=== PATIENT | female | born 1955 | race Two or more races ===

== ENCOUNTER 2024-10-20 08:11 | Observation (INO) | payer MEDICARE, MEDICAID ==
[~2024-10-20] VITALS: Ht 157.5 cm; Wt 73.1 kg
--- NOTE | 2024-10-20 08:43 | ED.PDOC ---
HPI (NEURO) HPI Comments This is a 69 year old female presenting to the ED with chief complaint of dizziness. Patient reports that she has been experiencing dizziness with associated imbalance for the past 2 days. Patient relays that she feels better when sitting down, but when standing, the room starts to spin. Patient denies any ringing in her ears, N/V, headache, chest pain, or SOB. Chief Complaint: Dizziness Time Seen by MD: 08:42 Reviewed Notes: Nurses Notes, Medications, Allergies Information Source: Patient, Relative (Child) Mode of Arrival: Wheelchair Severity: Moderate Dizziness/Weakness Severity: Unable to do activities Timing: Days Duration: Since onset Prehospital treatment: None Onset: At rest Circumstances: Spontaneous Symptoms: Vertigo, Imbalance Past Medical History PAST MEDICAL HISTORY: DM, HTN Surgical History: Denies all surgeries GYROSCOPIC INSTRUMENT MECHANIC History: No Pertinent GYROSCOPIC INSTRUMENT MECHANIC History Family History Family History: Reviewed,noncontributory to illness Social History Smoker: Non-Smoker Alcohol: Denies ETOH Use Drugs: Denies Drug Use Lives In: Home Constitutional: denies: chills, diaphoresis, fatigue, fever, malaise, sweats, weakness, others EENTM: denies: blurred vision, double vision, ear bleeding, ear discharge, ear drainage, ear pain, ear ringing, eye pain, eye redness, hearing loss, mouth pain, mouth swelling, nasal discharge, nose bleeding, nose congestion, nose pain, photophobia, tearing, throat pain, throat swelling, voice changes, others Respiratory: denies: cough, hemoptysis, orthopnea, SOB at rest, shortness of breath, SOB with excertion, stridor, wheezing, others Cardiovascular: denies: chest pain, dizzy spells, diaphoresis, Dyspnea on exertion, edema, irregular heart beat, left arm pain, lightheadedness, palpitations, PND, syncope, others Gastrointestinal: denies: abdomen distended, abdominal pain, blood streaked bowels, constipated, diarrhea, dysphagia, difficulty swallowing, hematemesis, melena, nausea, poor appetite, poor fluid intake, rectal bleeding, rectal pain, vomiting, others Genitourinary: denies: abnormal vagina bleeding, burning, dyspareunia, dysuria, flank pain, frequency, hematuria, incontinence, pain, , vagina discharge, urgency, others Neurological: reports: dizziness; denies: fainting, headache, left sided numbness, left sided weakness, numbness, paresthesia, pre-existing deficit, righ t sided numbness, right sided weakness, seizure, speech problems, tingling, tremors, weakness, others Musculoskeletal: denies: back pain, gout, joint pain, joint swelling, muscle pain, muscle stiffness, neck pain, others Integumetry: denies: bruises, change in color, change in hair/nails, dryness, laceration, lesions, lumps, rash, wounds, others Allergic/Immunocompromised: denies: Difficulty Healing, Frequent Infections, Hives, Itching, others Hematologic/Lymphatic: denies: anemia, blood clots, easy bleeding, easy bruising, swollen glands, others Endocrine: denies: excessive hunger, excessive sweating, excessive thirst, excessive urination, flushing, intolerance to cold, intolerance to heat, unexplained weight gain, unexplained weight loss, others Psychiatric: denies: anxiety, bipolar disorder, depression, hopeless, panic disorder, schizophrenia, sleepless, suicidal, others All Other Systems: Reviewed and Negative Physical Exam General Appearance: Moderate Distress, Normal HEENT: Normal ENT Inspection, Pharynx Normal, TMs Normal Neck: Full Range of Motion, Non-Tender, Normal, Normal Inspection Respiratory: Chest Non-Tender, Lungs Clear, No Accessory Muscle Use, No Respiratory Distress, Normal Breath Sounds Cardiovascular: No Edema, No JVD, No Murmur, No Gallop, Normal Peripheral Pulses, Regular Rate/Rhythm Breast Exam: Deferred Gastrointestinal: No Organomegaly, Non Tender, No Pulsatile Mass, Normal Bowel Sounds, Soft Genitalia: Deferred Pelvic: Deferred Rectal: Deferred Extremities: No calf tenderness, Normal capillary refill, Normal inspection, Normal range of motion, Non-tender, No pedal edema Musculoskeletal : Apperance: Normal Neurologic: Alert, investigation specialist II-XII nml as Tested, No Motor Deficits, Normal Affect, Normal Mood, No Sensory Deficits Cerebellar Function: NOT DONE Reflexes: NOT DONE Skin: Dry, Normal Color, Warm Peripheral Pulses: 3+ Radial (R), 3+ Radial (L) Lymphatic: No Adenopathy Was a procedure done? Was a procedure done?: No Differential Diagnosis (SZ) Seizure: Psychogenic Seizure, Closed Head Injury, CVA/TIA X-Ray, Labs, Meds, VS Vital Signs Date Time Temp Pulse Resp B/P (MAP) Pulse Ox O2 Delivery O2 Flow Rate FiO2 10/20/24 09:53 62 10/20/24 08:19 65 10/20/24 08:12 97.4 73 18 164/65 95 97.4 Lab Test 10/20/24 09:20 10/20/24 08:38 10/20/24 08:23 Range/Units Urine Color Light-yellow Yellow Urine Clarity Clear Clear Urine pH 5.5 5.0-9.0 Urine Specific [place] 1.018 1.001-1.035 Urine Protein Negative Negative Urine Ketones Trace Negative Urine Blood Negative Negative /uL Urine Nitrite Negative Negative Urine Bilirubin Negative Negative Urine Urobilinogen Normal Negative mg/dL Urine Leukocyte Esterase Trace Negative /uL Urine RBC 1 0 - 4 /hpf Urine Microscopic WBC 2 0-5 /HPF Urine Squamous Epithelial Cells Few <5 /hpf Urine Bacteria None seen None Seen /hpf Urine Glucose Normal Normal mg/dL White Blood Count 3.3 L 4.4-10.8 10^3/uL Red Blood Count 4.53 4.0-5.20 10^6/uL Hemoglobin 14.1 12.2-16.2 g/dL Hematocrit 40.9 36.0-46.0 % Mean Corpuscular Volume 90.3 80.0-100.0 fL Mean Corpuscular Hemoglobin 31.2 28.0-32.0 pg Mean Corpuscular Hemoglobin Concent 34.6 32.0-36.0 g/dL Red Cell Distribution Width 12.6 11.8-14.3 % Platelet Count 215 140-450 10^3/uL Mean Platelet Volume 8.5 6.9-10.8 fL Neutrophils (%) (Auto) 49.2 37.0-80.0 % Lymphocytes (%) (Auto) 38.8 10.0-50.0 % Monocytes (%) (Auto) 7.8 0.0-12.0 % Eosinophils (%) (Auto) 3.3 0.0-7.0 % Basophils (%) (Auto) 0.9 0.0-2.0 % Neutrophils # (Auto) 1.6 1.6-8.6 10 ^3/uL Lymphocytes # (Auto) 1.3 0.4-5.4 10 ^3/uL Monocytes # (Auto) 0.3 0-1.3 10 ^3/uL Eosinophils # (Auto) 0.1 0-0.8 10 ^3/uL Basophils # (Auto) 0 0-0.2 10 ^3/uL Nucleated Red Blood Cells 0.0 % Sodium Level 141 136-145 mmol/L Potassium Level 4.5 3.5-5.1 mmol/L Chloride Level 104 98-107 mmol/L Carbon Dioxide Level 28 20-31 mmol/L Anion Gap 9 5-15 Blood Urea Nitrogen 12 9-23 mg/dL Creatinine 0.85 0.550-1.02 mg/dL Glomerular Filtration Rate Calc 74 >90 mL/min BUN/Creatinine Ratio 14.1 10.0-20.0 Serum Glucose 146 H 74-106 mg/dL Calcium Level 9.7 8.7-10.4 mg/dL Troponin I High Sensitivity 4 </=34 ng/L POC Glucose 144 H 70-106 mg/dl [place] [id number] Ph: [phone] DIAGNOSTIC IMAGING Diagnostic Imaging Report : [id number] Signed PATIENT: MANASA BENSONACCT: [id number] UNIT: [id number] : 1955 LOC: ER ROOM / BED: / AGE / SEX: 69 / F ADM STATUS: REG ER SERVICE 9 ORDERING PHYSICIAN: ALIRIO BENOIT MD PROCEDURE(s): HWOCT - HEAD WITHOUT CONTRAST REASON: dizzy ORDER NUMBER(s): [id number], ACCESSION NUMBER(s): [id number] EXAM: CT HEAD WITHOUT CONTRAST INDICATION: dizzy TECHNIQUE: CT of the head without intravenous contrast. Coronal and sagittal reformatted images are submitted. Radiation Dose : 1. Head: CT Dose: CTDI volume is 54.97 mGy. Dose-length product is 1081.66 mGy*cm The dose indicators for CT are the volume Computed Tomography (CT) Dose Index (CTDIvol) and the Dose Length Product (DLP), and are measured in units of mGy and mGy-cm, respectively. These indicators are not patient dose, but values generated from the CT scanner acquisition factors. The report includes radiation exposure data for exposures received during this examination. All CT scans at this medical facility are performed using dose modulation techniques as appropriate to a performed exam including the following: Automated exposure control was utilized; adjustment of the MA and/or KV according to patient size; and use of iterative reconstruction technique. COMPARISON: None FINDINGS: There is no evidence of acute intracranial hemorrhage, extra-axial collection, mass effect, midline shift, herniation or hydrocephalus. The ventricles, sulci and cisterns are age appropriate. The laurent-white differentiation is intact. The visualized paranasal sinuses and mastoid air cells are clear. No depressed calvarial fracture. The surrounding soft tissues are unremarkable. IMPRESSION: 1. No evidence of acute intracranial abnormality. ATED BY: SREE DE LA FUENTE MD DICTATED DATE/TIME: 10/20/24946 SIGNED BY: SREE DE LA FUENTE MD SIGNED DATE/TIME: 10/20/24946 CC: Patient alert. Complaining of dizziness. CT of the head reviewed does not show any acute changes. Vitals stable. Answering questions. Unable to ambulate. Possibly need MRI. Blood sugar elevated. Urinalysis shows UTI. Explained to the patient. Continue monitoring. Time of 1ST Reevaluation: 09:41 Reevaluation 1ST: Unchanged Patient Education/Counseling: Diagnosis, Treatment Family Education/Counseling: Diagnosis, Treatment Departure 1 Departure Time of Disposition: 12:14 Impression: Primary Impression: Autonomic disorder Additional Impressions: UTI (urinary tract infection) Qualified Codes: N30.00 - Acute cystitis without hematuria Uncontrolled diabetes mellitus Qualified Codes: E13.65 - Other specified diabetes mellitus with hyperglycemia Disposition: ADMITTED INPATIENT Admit to: Med Surg Condition: Guarded Critical Care Note Critical Care Time?: No Stability Stability form required: No Heart Score Heart Score: Heart Score Response (Comments) Value History Slightly Suspicious 0 EKG Normal 0 Age >65 2 Risk Factors >3 or Hx ASHD 2 Troponin Normal limit 0 Total 4 I personally scribed for ALIRIO BENOIT MD ([email or web address]) on 10/20/24 at 08:43. Electronically submitted by Eugene Stephenson ([email or web address]). I personally scribed for ALIRIO BENOIT MD ([email or web address]) on 10/20/24 at 10:26. Electronically submitted by Eugene Stephenson ([email or web address]). ALIRIO BENOIT MD Oct 20, 2024 08:43
[2024-10-20 08:58] LABS: Hematocrit 40.9 % (36.0-46.0); Hemoglobin 14.1 g/dL (12.2-16.2); Mean Corpuscular Hemoglobin 31.2 pg (28.0-32.0); Mean Corpuscular Volume 90.3 fL (80.0-100.0); Nucleated Red Blood Cells % 0.0 %
[2024-10-20 09:07] LABS: Chloride 104 mmol/L (98-107); Potassium 4.5 mmol/L (3.5-5.1); Sodium 141 mmol/L (136-145)
[2024-10-20 09:08] LABS: Anion Gap 9 (5-15); Calcium 9.7 mg/dL (8.7-10.4); Carbon Dioxide 28 mmol/L (20-31)
[2024-10-20 09:14] LABS: Glucose 146 mg/dL (74-106)
[2024-10-20 09:15] LABS: BUN/Creatinine Ratio 14.1 (10.0-20.0); Blood Urea Nitrogen 12 mg/dL (9-23)
--- NOTE | 2024-10-20 09:50 | DVH ---
EXAM: CT HEAD WITHOUT CONTRAST INDICATION: dizzy TECHNIQUE: CT of the head without intravenous contrast. Coronal and sagittal reformatted images are s ubmitted. Radiation Dose : 1. Head: CT Dose: CTDI volume is 54.97 mGy. Dose-length product is 1081.66 mGy*cm The dose indicators for CT are the volume Computed Tomography (CT) Dose Index (CTDIvol) and the Dose Length Product (DLP), and are measured in units of mGy and mGy-cm, respectively. These indicators are not patient dose, but values generated from the CT scanner acquisition factors. The report includes radiation exposure data for exposures received during this examination. All CT scans at this medical facility are performed using dose modulation techniques as appropriate to a performed exam including the following: Automated exposure control was utilized; adjustment of the MA and/or KV according to patient size; and use of iterative reconstruction technique. COMPARISON: None FINDINGS: There is no evidence of acute intracranial hemorrhage, extra-axial collection, mass effect, midline s hift, herniation or hydrocephalus. The ventricles, sulci and cisterns are age appropriate. The laurent-white differentiation is intact. The visualized paranasal sinuses and mastoid air cells are clear. No depressed calvarial fracture. The surrounding soft tissues are unremarkable. IMPRESSION: 1. No evidence of acute intracranial abnormality.
--- NOTE | 2024-10-20 09:57 | ECG ---
[facility] Test Date: 2024-10-20 Test Time: 09:53:32 Pat Name: MANASA FRAGOSODepartment: Room: 024[facility] Gender: F [place] Hand: LOY : 1955 Requested By: ALIRIO BENOIT Order Number: [id number] Reading MD: Chuy Romero Measurements Intervals [place] Rate: 62 P: 45 VT: 156 QRS: 10 QRSD: 78 T: 14 QT: 409 QTc: 416 Interpretive Statements Sinus rhythm Low voltage, precordial leads Electronically Signed On 10-26-2024 19:08:47 PDT by Chuy Romero Please click the below link to view image of tracing.
[2024-10-20 11:50] LABS: Urine Protein, UAD Negative (Negative)
[2024-10-20] MEDS ORDERED: MORPHINE SULFATE INJ 2 MG/ml SYRG IV PRN (14:45)
[2024-10-20] MEDS ORDERED: HYDROcodone-ACET 5/325MG TAB PO PRN (14:45)
[2024-10-20] MEDS ORDERED: ONDANSETRON HCL 4 MG/2 ML VIAL IV PRN (14:45)
[2024-10-20] MEDS ORDERED: DOCUSATE SOD 100 MG CAP PO PRN (14:45)
[2024-10-20] MEDS ORDERED: ACETAMINOPHEN 325 MG TAB PO PRN (14:45)
--- NOTE | 2024-10-20 14:51 | DVHHP2 ---
Admitting Diagnosis: Dizziness History of Present Illness History of Present Illness Assessment: Patient is a 69-year-old female with a history of diabetes, hypertension, and vertigo, presenting with dizziness ongoing for the past 2 days. Patient reports a history of vertigo in the past, for which she was treated with meclizine and referred to ENT for exercises. Patient states that her current dizziness improves when sitting down, but upon standing, she experiences a sensation of the room spinning. The dizziness has been impacting her ability to stand and move around normally for the past two days. Medical History - Vertigo (history of previous episodes) - Diabetes - Hypertension Medications and Supplements - Meclizine - Used in the past for vertigo treatment Review of Systems HEENT: Negative for ringing in ears. Genitourinary: Negative for dysuria. Neurological: Positive for dizziness, room spinning upon standing. Past Medical History Sarita Osorio is a 69-year-old female with a history of diabetes and hypertension presenting with a chief complaint of dizziness ongoing for the past 2 days. Dizziness Assessment: Patient reports a 2-day history of dizziness, exacerbated by stand ing, with a sensation of the room spinning. She has a history of vertigo treated with meclizine and ENT-prescribed exercises. Current episode is similar to previous experiences. CT head with contrast shows no acute intracranial abnormalities. Differential diagnoses include benign paroxysmal positional vertigo (BPPV), vestibular neuritis, or less likely, cerebellar infarct. Plan: - Admit for observation and further workup of dizziness - Order MRI of brain to rule out cerebellar infarct - Start meclizine for symptomatic relief of dizziness - Reassess in the morning for potential discharge if symptoms improve - Consulted with Dr. Jamil [facility] who agreed with management plan Diabetes Mellitus Assessment: Patient has a known history of diabetes. No acute issues related to diabetes were reported during this encounter. Plan: - Continue current diabetes management Hypertension Assessment: Patient has a known history of hypertension. No acute issues related to hypertension were reported during this encounter. Plan: - Continue current hypertension management Social History Smoker: Non-Smoker Alcohol: Denies ETOH Use Drugs: Denies Drug Use Lives In: Home Constitutional: denies: chills, diaphoresis, fatigue, fever, malaise, sweats, weakness, others EENT: dizziness Respiratory: denies: cough, hemoptysis, orthopnea, SOB at rest, shortness of breath, SOB with excertion, stridor, wheezing, others Cardiovascular: denies: chest pain, dizzy spells, diaphoresis, Dyspnea on exertion, edema, irregular heart beat, left arm pain, lightheadedness, palpitations, PND, syncope, others Gastrointestinal: denies: abdomen distended, abdominal pain, blood streaked bowels, constipated, diarrhea, dysphagia, difficulty swallowing, hematemesis, melena, nausea, poor appetite, poor fluid intake, rectal bleeding, rectal pain, vomiting, others Genitourinary: denies: abnormal vagina bleeding, burning, dyspareunia, dysuria, flank pain, frequency, hematuria, incontinence, pain, , vagina discharge, urgency, others Neurological: reports: dizziness; denies: fainting, headache, left sided numbness, left sided weakness, numbness, paresthesia, pre-existing deficit, right sided numbness, right sided weakness, seizure, speech problems, tingling, tremors, weakness, others Musculoskeletal: denies: back pain, gout, joint pain, joint swelling, muscle pain, muscle stiffness, neck pain, others Integumentery: denies: bruises, change in color, change in hair/nails, dryness, laceration, lesions, lumps, rash, wounds, others Allergic/Immunocompromised: denies: Difficulty Healing, Frequent Infections, Hives, Itching, others Hematologic/Lymphatic: denies: anemia, blood clots, easy bleeding, easy bruising, swollen glands, others Endocrine: denies: excessive hunger, excessive sweating, excessive thirst, excessive urination, flushing, intolerance to cold, intolerance to heat, unexplained weight gain, unexplained weight loss, others Psychiatric: denies: anxiety, bipolar disorder, depression, hopeless, panic disorder, schizophrenia, sleepless, suicidal, others All Other Systems: Reviewed and Negative Allergies: Coded Allergies: NO KNOWN ALLERGIES (Unverified , 10/20/24) Allergies NKDA Home Meds Active Scripts Meclizine HCl (Meclizine 25) 25 Mg Tab, 25 MG PO TIDPRN PRN for 30 Days, #90 TAB Prov:SHEFALI JORGE Diane INSTALLATION TECH 10/21/24 Reported Medications Lisinopril (Lisinopril) 2.5 Mg Tab, 1 TAB PO DAILY, #30 TAB 5 Refills 10/20/24 Metformin Hydrochloride (Metformin Hcl) 500 Mg Tab, 500 MG PO DAILY for 30 Days, MG 10/20/24 Current Medications Vital Signs Vital Signs Date Time Temp Pulse Resp B/P (MAP) Pulse Ox O2 Delivery O2 Flow Rate FiO2 10/21/24 17:00 98.0 65 17 111/62 (78) 95 98.0 10/21/24 08:00 Room Air* 0 21 Physical Exam General Appearance: Moderate Distress, Normal HEENT: Normal ENT Inspection, Pharynx Normal, TMs Normal Neck: Full Range of Motion, Non-Tender, Normal, Normal Inspection Respiratory: Chest Non-Tender, Lungs Clear, No Accessory Muscle Use, No Respiratory Distress, Normal Breath Sounds Cardiovascular: No Edema, No JVD, No Murmur, No Gallop, Normal Peripheral Pulses, Regular Rate/Rhythm Breast Exam: Deferred Gastrointestinal: No Organomegaly, Non Tender, No Pulsatile Mass, Normal Bowel Sounds, Soft Genitalia: Deferred Pelvic: Deferred Rectal: Deferred Extremities: No calf tenderness, Normal capillary refill, Normal inspection, Normal range of motion, Non-tender, No pedal edema Musculoskeletal : Apperance: Normal Neurologic: Alert, high pressure cleaner II-XII nml as Tested, No Motor Deficits, Normal Affect, Normal Mood, No Sensory Deficits Cerebellar Function: NOT DONE Reflexes: NOT DONE Skin: Dry, Normal Color, Warm Peripheral Pulses: 3+ Radial (R), 3+ Radial (L) Lymphatic: No Adenopathy SEPSIS Sepsis Screen Date sepsis recognized/suspect: Oct 20, 2024 Time Sepsis recognized/suspect: 08 Recent Procedure: No On Antibiotic Therapy: No Respiratory Rate >20: No Heart Rate >90: No Temp<36 C (96.8 F) or >38.3 C: No SBP <90 or MAP <65 mmHG: No New Acute Mental Status Change: No Is the patient on CPAP, BIPAP,: No Physician Orders Head Without Contrast (10/20/24 09:10) Admit (10/20/24 14:36) Code Status (10/20/24 14:36) Brain Head Wo Contrast (10/20/24 14:36) Orthostatic Vital Signs (10/21/24 09:27) Discharge (10/21/24 09:28) Vital Signs Date Time Temp Pulse Resp B/P (MAP) Pulse Ox O2 Delivery O2 Flow Rate FiO2 10/21/24 17:00 98.0 65 17 111/62 (78) 95 98.0 10/21/24 13:00 67 17 132/82 (99) 96 10/21/24 13:00 76 17 128/97 (107) 96 10/21/24 13:00 98.5 64 16 114/55 (74) 95 98.5 10/21/24 09:00 98.9 68 17 135/72 (93) 96 98.9 10/21/24 08:00 Room Air* 0 21 Laboratory Tests Test 10/20/24 08:38 10/21/24 05:47 White Blood Count 3.3 10^3/uL (4.4-10.8) L 4.0 10^3/uL (4.4-10.8) L Wounds none Results Labs Test 10/21/24 05:47 10/20/24 09:20 10/20/24 08:38 10/20/24 08:23 Range/Units White Blood Count 4.0 L 4.4-10.8 10^3/uL Red Blood Count 4.54 4.0-5.20 10^6/uL Hemoglobin 14.4 12.2-16.2 g/dL Hematocrit 41.1 36.0-46.0 % Mean Corpuscular Volume 90.6 80.0-100.0 fL Mean Corpuscular Hemoglobin 31.6 28.0-32.0 pg Mean Corpuscular Hemoglobin Concent 34.9 32.0-36.0 g/dL Red Cell Distribution Width 12.7 11.8-14.3 % Platelet Count 204 140-450 10^3/uL Mean Platelet Volume 8.8 6.9-10.8 fL Neutrophils (%) (Auto) 53.9 37.0-80.0 % Lymphocytes (%) (Auto) 35.5 10.0-50.0 % Monocytes (%) (Auto) 7.4 0.0-12.0 % Eosinophils (%) (Auto) 2.7 0.0-7.0 % Basophils (%) (Auto) 0.5 0.0-2.0 % Neutrophils # (Auto) 2.1 1.6-8.6 10 ^3/uL Lymphocytes # (Auto) 1.4 0.4-5.4 10 ^3/uL Monocytes # (Auto) 0.3 0-1.3 10 ^3/uL Eosinophils # (Auto) 0.1 0-0.8 10 ^3/uL Basophils # (Auto) 0 0-0.2 10 ^3/uL Nucleated Red Blood Cells 0.1 % Sodium Level 139 136-145 mmol/L Potassium Level 4.0 3.5-5.1 mmol/L Chloride Level 104 98-107 mmol/L Carbon Dioxide Level 26 20-31 mmol/L Anion Gap 9 5-15 Blood Urea Nitrogen 12 9-23 mg/dL Creatinine 0.79 0.550-1.02 mg/dL Glomerular Filtration Rate Calc 80 >90 mL/min BUN/Creatinine Ratio 15.2 10.0-20.0 Serum Glucose 143 H 74-106 mg/dL Calcium Level 9.5 8.7-10.4 mg/dL Total Bilirubin 0.5 0.2-1.0 mg/dL Aspartate Amino Transferase (AST) 19 13-40 U/L Alanine Aminotransferase (ALT) < 9 7-40 U/L Alkaline Phosphatase 65 46-116 U/L Total Protein 7.6 5.7-8.2 g/dL Albumin 4.3 3.2-4.8 g/dL Urine Color Light-yellow Yellow Urine Clarity Clear Clear Urine pH 5.5 5.0-9.0 Urine Specific [place] 1.018 1.001-1.035 Urine Protein Negative Negative Urine Ketones Trace Negative Urine Blood Negative Negative /uL Urine Nitrite Negative Negative Urine Bilirubin Negative Negative Urine Urobilinogen Normal Negative mg/dL Urine Leukocyte Esterase Trace Negative /uL Urine RBC 1 0 - 4 /hpf Urine Microscopic WBC 2 0-5 /HPF Urine Squamous Epithelial Cells Few <5 /hpf Urine Bacteria None seen None Seen /hpf Urine Glucose Normal Normal mg/dL Troponin I High Sensitivity 4 </=34 ng/L POC Glucose 144 H 70-106 mg/dl Plan discussed with: Patient Problems List: (1) Dizziness Status: Acute Assessment & Plan: MRI PRN meclizine outpt referral for ENT Code Visit Code Visit Total Time (mins): 45 SHEFALI JORGE NP Oct 20, 2024 14:51
[2024-10-20] MEDS: MECLIZINE HCL 25 MG TAB PO PRN (15:36)
--- NOTE | 2024-10-20 16:32 | DVH ---
EXAM: MRI BRAIN HEAD WO CONTRAST HISTORY: dizziness TECHNIQUE: Multiplanar and multisequence MR imaging of the head was performed. COMPARISON: CT HEAD WITHOUT CONTRAST on DOS: 10/20/24 FINDINGS: The ventricles and subarachnoid spaces are normal in size and configuration. Minor scattered FLAIR hy perintensities throughout the supratentorial white matter consistent with nonspecific white matter di sease. There is no midline shift or mass effect. The vascular flow-voids are unremarkable. Diffusion weighted imaging is not indicative of acute or recent infarct. IMPRESSION: 1. No acute or recent infarct. 2. Minor chronic microvascular ischemic change.
[2024-10-20] MEDS: SODIUM CHLORIDE 0.9% 1,000 ML IV SCH (16:37)
[2024-10-20 17:00] VITALS: BP 156/90; PULSE 68; RESP 17; TEMP 98; O2SAT 97
[2024-10-20] MEDS ORDERED: METF-370 PO (17:32)
[2024-10-20] MEDS ORDERED: LISI2.5T47 PO (17:32)
[2024-10-20 20:00] VITALS: PULSE 71; RESP 17; O2SAT 95
[2024-10-20 21:00] VITALS: BP 128/73; PULSE 71; RESP 17; TEMP 97.9; O2SAT 95
[2024-10-20] MEDS ORDERED: TEMAZEPAM 15 MG CAP PO PRN (22:00)
[2024-10-21 01:00] VITALS: BP 142/78; PULSE 61; RESP 18; TEMP 97.7; O2SAT 96
[2024-10-21 05:00] VITALS: BP 127/76; PULSE 62; RESP 17; TEMP 97.8; O2SAT 94
[2024-10-21 07:16] LABS: Hematocrit 41.1 % (36.0-46.0); Hemoglobin 14.4 g/dL (12.2-16.2); Mean Corpuscular Hemoglobin 31.6 pg (28.0-32.0); Mean Corpuscular Volume 90.6 fL (80.0-100.0); Nucleated Red Blood Cells % 0.1 %
[2024-10-21 07:18] LABS: Alkaline Phosphatase 65 U/L (46-116); Anion Gap 9 (5-15); BUN/Creatinine Ratio 15.2 (10.0-20.0); Blood Urea Nitrogen 12 mg/dL (9-23); Calcium 9.5 mg/dL (8.7-10.4); Carbon Dioxide 26 mmol/L (20-31); Chloride 104 mmol/L (98-107); Potassium 4.0 mmol/L (3.5-5.1); Sodium 139 mmol/L (136-145); Total Protein 7.6 g/dL (5.7-8.2)
[2024-10-21 07:19] LABS: Albumin 4.3 g/dL (3.2-4.8); Bilirubin, Total 0.5 mg/dL (0.2-1.0)
[2024-10-21 07:32] LABS: Alanine Aminotransferase < 9 U/L (7-40); Glucose 143 mg/dL (74-106)
[2024-10-21 09:00] VITALS: BP 135/72; PULSE 68; RESP 17; TEMP 98.9; O2SAT 96
[2024-10-21] MEDS ORDERED: MECL1TAB42 PO (09:28)
--- NOTE | 2024-10-21 09:29 | DVHDS2 ---
Discharge Summary Date of Admission Oct 20, 2024 at 14:36 Date of Discharge: Oct 21, 2024 Admitting Diagnosis Dizziness r/t Vertigo Wounds: none Labs/Diagnostic Data: Laboratory Results Test 10/21/24 05:47 10/20/24 09:20 10/20/24 08:38 10/20/24 08:23 White Blood Count 4.0 10^3/uL (4.4-10.8) Red Blood Count 4.54 10^6/uL (4.0-5.20) Hemoglobin 14.4 g/dL (12.2-16.2) Hematocrit 41.1 % (36.0-46.0) Mean Corpuscular Volume 90.6 fL (80.0-100.0) Mean Corpuscular Hemoglobin 31.6 pg (28.0-32.0) Mean Corpuscular Hemoglobin Concent 34.9 g/dL (32.0-36.0) Red Cell Distribution Width 12.7 % (11.8-14.3) Platelet Count 204 10^3/uL (140-450) Mean Platelet Volume 8.8 fL (6.9-10.8) Neutrophils (%) (Auto) 53.9 % (37.0-80.0) Lymphocytes (%) (Auto) 35.5 % (10.0-50.0) Monocytes (%) (Auto) 7.4 % (0.0-12.0) Eosinophils (%) (Auto) 2.7 % (0.0-7.0) Basophils (%) (Auto) 0.5 % (0.0-2.0) Neutrophils # (Auto) 2.1 10 ^3/uL (1.6-8.6) Lymphocytes # (Auto) 1.4 10 ^3/uL (0.4-5.4) Monocytes # (Auto) 0.3 10 ^3/uL (0-1.3) Eosinophils # (Auto) 0.1 10 ^3/uL (0-0.8) Basophils # (Auto) 0 10 ^3/uL (0-0.2) Nucleated Red Blood Cells 0.1 % Sodium Level 139 mmol/L (136-145) Potassium Level 4.0 mmol/L (3.5-5.1) Chloride Level 104 mmol/L (98-107) Carbon Dioxide Level 26 mmol/L (20-31) Anion Gap 9 (5-15) Blood Urea Nitrogen 12 mg/dL (9-23) Creatinine 0.79 mg/dL (0.550-1.02) Glomerular Filtration Rate Calc 80 mL/min (>90) BUN/Creatinine Ratio 15.2 (10.0-20.0) Serum Glucose 143 mg/dL (74-106) Calcium Level 9.5 mg/dL (8.7-10.4) Total Bilirubin 0.5 mg/dL (0.2-1.0) Aspartate Amino Transferase (AST) 19 U/L (13-40) Alanine Aminotransferase (ALT) < 9 U/L (7-40) Alkaline Phosphatase 65 U/L (46-116) Total Protein 7.6 g/dL (5.7-8.2) Albumin 4.3 g/dL (3.2-4.8) Urine Color Light-yellow (Yellow) Urine Clarity Clear (Clear) Urine pH 5.5 (5.0-9.0) Urine Specific [place] 1.018 (1.001-1.035) Urine Protein Negative (Negative) Urine Ketones Trace (Negative) Urine Blood Negative /uL (Negative) Urine Nitrite Negative (Negative) Urine Bilirubin Negative (Negative) Urine Urobilinogen Normal mg/dL (Negative) Urine Leukocyte Esterase Trace /uL (Negative) Urine RBC 1 /hpf (0 - 4) Urine Microscopic WBC 2 /HPF (0-5) Urine Squamous Epithelial Cells Few /hpf (<5) Urine Bacteria None seen /hpf (None Seen) Urine Glucose Normal mg/dL (Normal) Troponin I High Sensitivity 4 ng/L (</=34) POC Glucose 144 mg/dl (70-106) Other Laboratory Tests 10/21/24 05:47 Brief Hx & Hospital Course: This is a [id number] female that was admitted for a two day complaint of dizziness. Patient states she has a history of vertigo in the past where she was started on meclizine and had to be referred to outpatient ENT for exercises related to dizziness. Patient was admitted to rule out a cerebellar stroke. CVA was ruled out with MRI of the brain. Patient had no symptoms of a urinary tract infection and only had a trace amount of leukocyte esterase as noted on urinalysis. Her condition improved with meclizine. I did discuss plan of care with Dr. Jamil from the [facility] facility and I also spoke with patient's daughter and patient and they agreed with the plan of care Operations or Procedures none Condition at Discharge: Stable Final Diagnosis/Problems List Vertigo MRI negative for CVA Continue Meclizine as needed Outpt referral ENT for vertigo Problems List: (1) Vertigo Status: Acute Discharge Disposition: Home Discharge Instruct/Medications Diet: Regular Activity: No Restrictions, As Tolerated Follow Up/Referral: [facility] Scheduled Lisinopril (Lisinopril), 1 TAB PO DAILY, (Reported) Metformin Hydrochloride (Metformin Hcl), 500 MG PO DAILY, (Reported) Scheduled PRN Meclizine HCl (Meclizine 25), 25 MG PO TIDPRN PRN Discharge Statement: "Patient was advised to return to the ER or call 911 if any headaches, dizziness, shortness of breath, chest pain, abdominal pain, bleeding, fevers, or worsening of medical condition. Patient was counseled about treatment plan, medications, possible side effects, patientverbalized understanding. All questions were answered to the best of my ability. This discharge took greater then 30 minutes in planning, reviewing documentation, counseling the patient, and discussing with other team members." ASSESSMENT ASSESSMENT Hospital Course Patient was admitted for further work up of her dizziness. Cerebellar stroke was ruled out. Urinary tract infection was also ruled out. Patient found to have vertigo and she states she had a remote history of vertigo in the past where meclizine worked well for her. Assessment Vertigo MRI negative for CVA Continue Meclizine as needed Outpt referral ENT for vertigo Problems: (1) Vertigo SHEFALI JORGE NP Oct 21, 2024 09:29
[2024-10-21] MEDS: ENOXAPARIN SOD 40 MG/0.4 ML SYRINGE SC SCH (10:08)
[2024-10-21 13:00] VITALS: BP_SYST 114; BP_SYST 128; BP_SYST 132; BP_DIAS 55; BP_DIAS 82; BP_DIAS 97; PULSE 64; PULSE 67; PULSE 76; RESP 16; RESP 17; TEMP 98.5; O2SAT 95; O2SAT 96
--- NOTE | 2024-10-21 13:36 | ECG ---
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
[2024-10-21 17:00] VITALS: BP 111/62; PULSE 65; RESP 17; TEMP 98; O2SAT 95
== END 2024-10-21 16:50 | disposition home or self-care (01) ==
LOC: ER 08:11 → OVERFLOW 14:36 → INTOOBSV 14:36 → EAST 16:19
PROVIDERS: ADMIT Nurse Practitioner; ATTEND Nurse Practitioner
DX: R42 Dizziness and giddiness (principal); E11.65 Type 2 diabetes mellitus with hyperglycemia; N30.00 Acute cystitis without hematuria; G90.9 Disorder of the autonomic nervous system, unspecified; I10 Essential (primary) hypertension; Z79.899 Other long term (current) drug therapy; Z79.84 Long term (current) use of oral hypoglycemic drugs
CPT/HCPCS: 36415; 70450; 70551; 80048; 80053; 81001; 82962; 84484; 85025; 93005; 96360; 96361; 96372; 99284; G0378; J1650; J8597